=== PATIENT | female | born 1990 | race Caucasian/White ===

== ENCOUNTER 2018-01-31 10:19 | Emergency (ER) | payer BC, OTHER ==
[2018-01-31 12:51] VITALS: BP 125/76
[2018-01-31] MEDS ORDERED: Ondansetron ODT TAB* 4 MG PO ONE (12:54)
--- NOTE | 2018-01-31 13:29 | UC ---
General HPI - HPI Summary HPI Summary: pt is c/o n/v/d since last pm, multiple bouts of each. she is not able to keep anything down. she denies hx travel, recent antibiotic use and sick contacts. pt is an insulin diabetic with a pump. she admits to being weak and lightheaded upon standing. denies fever and abdominal pain. has not tx'ed her current BS because unable to eat and is afraid of hypoglycemia. admits to DKA once in 2016 when dx with diabetes. - History of Current Complaint Chief Complaint: UCGI Stated Complaint: DIARRHEA, VOMITING (DIABETIC) Time Seen by Provider: 01/31/18 13:21 Hx Obtained From: Patient, Family/[employer] Hx Last Menstrual Period: 12/20 Onset/Duration: Gradual Onset Timing: Constant Pain Intensity: 2 Aggravating: attempting to take oral fluids Alleviating: nothing Associated Signs & Symptoms: Positive: Diarrhea, Nausea, Vomiting, Weakness. Negative: Abdominal Pain - Allergy/Home Medications Allergies/Adverse Reactions: Allergies Allergy/AdvReac Type Severity Reaction Status Date / Time No Known Allergies Allergy Verified 01/31/18 12:28 Home Medications: Home Medications Meclizine TAB* [Antivert 12.5 TAB*] 25 mg PO TID PRN 01/31/18 [History Confirmed 01/31/18] PMH/Surg Hx/FS Hx/Imm Hx Endocrine History: Diabetes - Surgical History Surgical History: None - Family History Known Family History: Positive: Hypertension, Diabetes - type 1 - Social History Lives: With Family Alcohol Use: None Substance Use Type: Marijuana Substance Use Comment - Amount & Last Used: daily Smoking Status (MU): Never Smoked Tobacco When Did the Patient Quit Smoking/Using Tobacco: APPROX 8 YRS AGO - Immunization History Most Recent Influenza Vaccination: never Most Recent Tetanus Shot: never Most Recent Pneumonia Vaccination: never Vaccination Up to Date: Yes Review of Systems Constitutional: Negative Skin: Negative Eyes: Negative ENT: Negative Respiratory: Negative Cardiovascular: Negative Gastrointestinal: Vomiting, Diarrhea, Nausea Genitourinary: Negative Motor: Weakness Neurovascular: Negative Musculoskeletal: Negative Neurological: Negative Psychological: Negative All Other Systems Reviewed And Are Negative: Yes Physical Exam Triage Information Reviewed: Yes Appearance: Ill-Appearing Vital Signs: Initial Vital Signs Temp 97.9 F 01/31/18 12:36 Pulse 80 01/31/18 12:36 Resp 18 01/31/18 12:36 BP 125/76 01/31/18 12:36 Pulse Ox 100 01/31/18 12:36 Vital Signs Reviewed: Yes Eyes: Positive: Conjunctiva Clear ENT: Positive: Other - lips and tongue are dry. Negative: Pharyngeal erythema, Nasal congestion, Nasal drainage Neck: Positive: Supple, Nontender, No Lymphadenopathy Respiratory: Positive: Lungs clear, Normal breath sounds Cardiovascular: Positive: RRR, No Murmur Abdomen Description: Positive: Nontender, No Organomegaly, Soft. Negative: Distended, Guarding Bowel Sounds: Positive: Present Musculoskeletal: Positive: ROM Intact Neurological: Positive: Alert Psychological: Positive: Age Appropriate Behavior Skin Exam: Other - Slightly pale Diagnostics - Laboratory Diagnostic Studies Completed/Ordered: hcg=neg. u/a= 2+ glucose, 1+ bilirubin, 4 + ketones, trace blood, sg=1.020 Course/Dx - Course Course Of Treatment: pt tx with zofran pre exam per Dr Llamas. Continued to vomit after. At time of my exam, pt advised of need for ER transfer for additonal evaluation and tx. Pt has clinical dehydration, hyperglycemia and possible DKA. 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 Case d/w Dr Rivas, he visited with them after which they are considering the transfer but again want a few minutes to talk. They have agreed to go to the ER. EMS transfer has been refused, they will drive. Risk of worsening, disability and have been advised. Both still refused EMS. They are A&[employer] thus I must respect there wish to drive. [facility] [place]. Report Given to Dr Razo including intractable v/d, BS 321 and possible DKA. - Differential Dx - Multi-Symptom Provider Diagnoses: vomiting/diarrhea, dehydration, possible DKA Discharge - Sign-Out/Discharge Documenting (check all that apply): Discharge - Discharge Plan Condition: Stable Disposition: TRANS [facility] Referrals: Kevin Danielle MD [Primary Care Provider] - Additional Instructions: YOU HAVE DECLINED AN AMBULANCE. DRIVE DIRECTLY TO [facility] EMERGENCY ROOM DISCUSSED. THEY ARE EXPECTING YOU. - Billing Disposition and Condition Condition: STABLE Disposition: [facility]
== END 2018-01-31 14:25 | disposition short-term general hospital (02) ==
LOC: UCCORT 10:19
DX: E11.9 Type 2 diabetes mellitus without complications (principal); R11.11 Vomiting without nausea; R19.7 Diarrhea, unspecified; E86.0 Dehydration; Z32.02 Encounter for pregnancy test, result negative; Z87.891 Personal history of nicotine dependence
CPT/HCPCS: 81003; 84702; 99212; A9270-GY; G0463